=== PATIENT | female | born 1950 | race African-American/Black ===

== ENCOUNTER 2016-06-11 06:30 | Day surgery (SDC) | payer MEDICARE, OTHER ==
--- NOTE | ~2016-06-11 | EGD ---
EGD REPORT [facility] [address] [address] NAME: YASHIRA MORA : [birth year] STATUS : REG [facility]#: [id number] AGE: 65 ADM/REG DATE : 06/11/16 MR#: [id number] REPORT SERV DATE: 06/11/16 DICTATED BY: MORIAH SILVA DATE: 06/11/16 REPORT STATUS : Draft [facility]ANS[facility]IBED [facility]: [facility] DATE: 06/11/16 Endoscopy Center Patient Name: Yashira Mora Date of : 1950 Attending MD: MORIAH SLIVA MD Procedure Date No Time: 06/11/2016 Procedure: Upper GI endoscopy Indications: Abdominal pain in the right upper quadrant, Dysphagia Referring MD: LAVINIA SPARROW Medicines: as per anesthesia Complications: No immediate complications. Procedure: Pre-Anesthesia Assessment: - ASA Grade Assessment: II - A patient with mild systemic disease. After obtaining informed consent, the endoscope was passed under direct vision. Throughout the procedure, the patient's blood pressure, pulse, and oxygen saturations were monitored continuously. The GIF H190 [id number] was introduced through the mouth, and advanced to the third part of duodenum. The upper GI endoscopy was accomplished without difficulty. The patient tolerated the procedure. Findings: The examined esophagus was normal. The scope was withdrawn. Dilation was performed with a Villatoro dilator with no resistance at 44 Fr. The entire examined stomach was normal. The cardia and gastric fundus were normal on retroflexion. The examined duodenum was normal. Impression: - Normal esophagus. Dilated. - Normal stomach. - Normal examined duodenum. Recommendation: - Continue present medications. Procedure Code(s): --- Professional --- 53610, Esophagogastroduodenoscopy, flexible, transoral; diagnostic, including collection of specimen(s) by brushing or washing, when performed (separate procedure) 23499, Dilation of esophagus, by unguided sound or bougie, single or multiple passes Diagnosis Code(s): --- Professional --- R10.11, Right upper quadrant pain EGD REPORT [facility] [address] [address] NAME: YASHIRA MORA : [birth year] STATUS : REG [facility] PAT#: [id number] AGE: 65 ADM/REG DATE : 06/11/16 MR#: [id number] REPORT SERV DATE: 06/11/16 DICTATED BY: MORIAH SILVA. DATE: 06/11/16 REPORT STATUS : Draft TRANSCRIBED BY: [employer] DATE: 06/11/16 R13.10, Dysphagia, unspecified CPT copyright 2013 [employer]. All rights reserved. The codes documented in this report are preliminary and upon licensed guide review may be revised to meet current compliance requirements. MORIAH SILVA MD 06/11/2016 8:43 AM This report has been signed electronically. Number of Addenda: 0 Note Initiated On: 06/11/2016 8:29 AM Scope Withdrawal Time 0 hours 0 minutes 0 seconds [id number] [id number]
--- NOTE | ~2016-06-11 | EGD ---
EGD REPORT [facility] [address] [address] NAME: YASHIRA MORA : [birth year] STATUS : REG [facility]#: [id number] AGE: 65 ADM/REG DATE : 06/11/16 MR#: [id number] REPORT SERV DATE: 06/11/16 DICTATED BY: MORIAH SILVA DATE: 06/11/16 REPORT STATUS : Draft [facility] DATE: 06/11/16 Endoscopy Center Patient Name: Yashira Mora Date of : 1950 Attending MD: MORIAH SILVA MD Procedure Date No Time: 06/11/2016 Procedure: Colonoscopy Indications: High risk colon cancer surveillance: Personal history of colonic polyps Referring MD: LAVINIA SPARROW Medicines: as per anesthesia Complications: No immediate complications. Procedure: Pre-Anesthesia Assessment: - ASA Grade Assessment: II - A patient with mild systemic disease. After I obtained informed consent, the scope was passed under direct vision. Throughout the procedure, the patient's blood pressure, pulse, and oxygen saturations were monitored continuously. The PCF [id number] was introduced through the anus and advanced to the cecum, identified by appendiceal orifice and ileocecal valve. The colonoscopy was performed without difficulty. The patient tolerated the procedure. The quality of the bowel preparation was fair. Findings: The perianal and digital rectal examinations were normal. A sessile polyp was found in the ascending colon. The polyp was 3 mm in size. The polyp was removed with a cold biopsy forceps. Resection and retrieval were complete. Internal hemorrhoids were found during endoscopy and were mild. Impression: - One 3 mm polyp in the ascending colon. Resected and retrieved. - Internal hemorrhoids. Recommendation: - Await pathology results. - Repeat colonoscopy for surveillance based on pathology results. Procedure Code(s): --- Professional --- 30048, Colonoscopy, flexible, proximal to splenic flexure; with biopsy, single or multiple Diagnosis Code(s): --- Professional --- EGD REPORT [facility] [address] [address] NAME: YASHIRA MORA : [birth year] STATUS : REG [facility]#: [id number] AGE: 65 ADM/REG DATE : 06/11/16 MR#: [id number] REPORT SERV DATE: 06/11/16 DICTATED BY: MORIAH SILVA. DATE: 06/11/16 REPORT STATUS : Draft TRANSCRIBED BY: [employer] DATE: 06/11/16 D12.2, Benign neoplasm of ascending colon K64.8, Other hemorrhoids Z86.010, Personal history of colonic polyps CPT copyright 2013 [employer]. All rights reserved. The codes documented in this report are preliminary and upon remote inpatient coder review may be revised to meet current compliance requirements. MORIAH SILVA MD 06/11/2016 9:12 AM This report has been signed electronically. Number of Addenda: 0 Note Initiated On: 06/11/2016 8:41 AM Scope Withdrawal Time 0 hours 12 minutes 6 seconds [id number] [id number]
[~2016-06-11 06:30] MED LIST: AMITIZA24 PO; AT25 PO; CYMBALTA60 PO; LIBRAX PO; LOTREL1 CA1 PO; OS500+D PO; PROTONIX PO; SILENOR3 MG PO; TOPAMAX50 MG PO; TOVIAZ8 MG PO
== END 2016-06-11 23:59 | disposition home or self-care (01) ==
LOC: DMU 06:30
PROVIDERS: Internal Medicine Gastroenterology
PROC: 0DBK8ZZ Excision of Ascending Colon, Via Natural or Artificial Opening Endoscopic (ICD-10-PCS; principal; 2016-06-11 08:00)
PROC: 0D757ZZ Dilation of Esophagus, Via Natural or Artificial Opening (ICD-10-PCS; 2016-06-11 08:00)
DX: Z12.11 Encounter for screening for malignant neoplasm of colon (principal); D12.2 Benign neoplasm of ascending colon; K64.8 Other hemorrhoids; Z86.010 Personal history of colon polyps; Z88.2 Allergy status to sulfonamides; Z86.73 Personal history of transient ischemic attack (TIA), and cerebral infarction without residual deficits; I10 Essential (primary) hypertension; R10.11 Right upper quadrant pain; R13.10 Dysphagia, unspecified
CPT/HCPCS: 88305; J2370